=== PATIENT | male | born 1985 | race Caucasian/White ===

== ENCOUNTER 2022-03-20 00:32 | Emergency (ER) | payer MEDICARE, MEDICAID | END 2022-03-20 01:41 | disposition home or self-care (01) | LOC: CC.ED 00:32 | DX: M94.0 Chondrocostal junction syndrome [Tietze] (principal); Z88.2 Allergy status to sulfonamides; Z79.899 Other long term (current) drug therapy; Z79.82 Long term (current) use of aspirin | CPT/HCPCS: 36415; 71046; 80053; 83735; 84484; 85025; 99283; 99285-25 ==

== ENCOUNTER 2022-12-18 03:59 | Emergency (ER) | payer MEDICARE, MEDICAID ==
[2022-12-18] MEDS ORDERED: Acetaminophen 325 MG Tab PO ONE (05:12)
[2022-12-18 05:15] LABS: BASOPHILS ABSOLUTE AUTO 0.02 10^3/uL (0.00-0.50); BASOPHILS PERCENT AUTO 0.2 % (0-1); EOSINOPHILS ABSOLUTE AUTO 0.09 10^3/uL (0.00-1.50); EOSINOPHILS PERCENT AUTO 0.7 % (0-6); HEMOGLOBIN 15.4 g/dL (14.0-18.0); IMMATURE GRAN ABSOLUTE AUTO 0.04 10^3/uL (0.00-0.49); IMMATURE GRAN PERCENT AUTO 0.3 % (0.0-4.9); LYMPHOCYTES ABSOLUTE AUTO 0.35 10^3/uL (0.60-5.00); LYMPHOCYTES PERCENT AUTO 2.6 % (24-44); MEAN CORPUSCULAR HEMOGLOBIN 31.4 pg (27.0-32.0); MEAN CORPUSCULAR VOLUME 89.8 fL (83.0-97.0); MONOCYTES ABSOLUTE AUTO 0.36 10^3/uL (0.00-1.50); MONOCYTES PERCENT AUTO 2.7 % (0-10); NEUTROPHILS ABSOLUTE AUTO 12.41 x10^3/uL (1.80-8.00); NEUTROPHILS PERCENT AUTO 93.5 % (41-71); PLATELET COUNT,PLT 220 10^3/uL (150-400); WHITE BLOOD CELL COUNT,WBC 13.3 10^3/uL (4.0-11.0)
[2022-12-18 05:29] LABS: ALBUMIN 3.2 g/dL (3.4-5.0); BILIRUBIN TOTAL 1.7 mg/dL (0.0-1.0); CALCIUM 8.5 mg/dL (8.4-10.1); EST CRCL DRUG DOSING (CG) 71.53 mL/min; POTASSIUM,K 3.9 mEq/L (3.5-5.0); PROTEIN TOTAL,TP 7.1 g/dL (6.4-8.2)
== END 2022-12-18 06:07 | disposition home or self-care (01) ==
LOC: CC.ED 03:59
DX: J10.1 Influenza due to other identified influenza virus with other respiratory manifestations (principal); E03.9 Hypothyroidism, unspecified; Z79.899 Other long term (current) drug therapy; Z88.1 Allergy status to other antibiotic agents; Z88.2 Allergy status to sulfonamides
CPT/HCPCS: 36415; 80053; 85025; 87430; 87804; 99284; A9270; U0002; 99283